=== PATIENT | female | born 1965 | race Caucasian/White ===

== ENCOUNTER 2017-05-10 00:28 | Emergency (ER) | payer MEDICARE ==
[~2017-05-10] VITALS: Ht 157.5 cm; Wt 67.0 kg
[2017-05-10] MEDS ORDERED: AZITHROMYCIN 500 MG TABLET PO ONE (01:30)
[2017-05-10] MEDS ORDERED: CEFTRIAXONE SODIUM 250 MG/VIAL IM ONE (01:30)
[2017-05-10 02:13] LABS: CLARITY URINE CLEAR (CLEAR); COLOR URINE YELLOW (YELLOW); KETONES URINE NEGATIVE (NEGATIVE); LEUKOCYTE ESTERASE URINE NEGATIVE (NEGATIVE); NITRITE URINE NEGATIVE (NEGATIVE); OCCULT BLOOD URINE TRACE (NEGATIVE); PROTEIN URINE NEGATIVE (NEGATIVE); SPECIFIC GRAVITY URINE 1.013 (1.005-1.030); UROBILINOGEN URINE 0.2 E.U./dL (0.2-1.0)
[2017-05-10 03:05] VITALS: BP 140/75
== END 2017-05-10 03:35 | disposition home or self-care (01) ==
LOC: ER 00:28
DX: R30.0 Dysuria (principal); M54.5 Low back pain; R10.9 Unspecified abdominal pain; R11.0 Nausea; R50.9 Fever, unspecified; K58.9 Irritable bowel syndrome, unspecified; Z88.5 Allergy status to narcotic agent; Z88.6 Allergy status to analgesic agent; Z88.8 Allergy status to other drugs, medicaments and biological substances
CPT/HCPCS: 81001; 87086; 96372; 99284; J0696